=== PATIENT | male | born 1985 | race Caucasian/White ===

== ENCOUNTER 2025-01-27 09:51 | Emergency (ER) | payer OTHER ==
[~2025-01-27] VITALS: Ht 165.1 cm; Wt 79.5 kg
[2025-01-27 09:53] VITALS: BP 126/76; PULSE 90; RESP 16; TEMP 98.4; O2SAT 100
[2025-01-27 10:47] LABS: PLATELET COUNT (AUTO) 257 K/uL (150-450); RED BLOOD CELL COUNT(AUTO) 5.36 MIL/uL (4.50-5.90); RED CELL DISTRIBUTION WIDTH 13.5 % (11.5-14.5); WHITE BLOOD COUNT (AUTO) 6.8 K/uL (4.5-11.0)
[2025-01-27 10:57] LABS: CALCIUM, TOTAL 9.0 mg/dL (8.8-10.5); CREATININE 0.97 mg/dL (0.60-1.30); GLOMERULAR FILTR. RATE CALC > 60 mL/min (>60); GLUCOSE,RANDOM 102 mg/dL (70-110); SODIUM SERUM 140 mmol/L (136-145); UREA NITROGEN, BLOOD 16 mg/dL (7-18)
[2025-01-27 11:02] LABS: ASPARTATE AMINOTRANSFERASE 25.0 U/L (15-37); TOTAL PROTEIN, SERUM 7.1 g/dL (6.4-8.2)
[2025-01-27] MEDS: CLOTRIMAZOLE 1% 15 GM CREAM TP ONE (11:04)
[2025-01-27] MEDS ORDERED: PRED-554 PO (11:09)
[2025-01-27] MEDS ORDERED: CLOT15CR29 TP (11:09)
[2025-01-27] MEDS: FLUCONAZOLE 150 MG TABLET PO ONE (11:16)
== END 2025-01-27 11:24 | disposition home or self-care (01) ==
LOC: EMS 09:54
DX: R21 Rash and other nonspecific skin eruption (principal); Z90.49 Acquired absence of other specified parts of digestive tract; Z88.5 Allergy status to narcotic agent; Z91.011 Allergy to milk products
CPT/HCPCS: 99284; 80048; 80076; 85025; 36415; J7512